=== PATIENT | male | born 1970 | race African-American/Black ===

== ENCOUNTER 2022-04-24 20:03 | Emergency (ER) | payer MEDICAID ==
[~2022-04-24] VITALS: Ht 188 cm; Wt 95.3 kg
[2022-04-24 20:06] VITALS: BP 149/98
--- NOTE | 2022-04-24 20:06 | NUR ---
JERE LESLIE TAKEN TO BED #5
--- NOTE | 2022-04-24 20:44 | NUR ---
PATIENT LEFT WITHOUT BEING SEEN BY DR. Gaviria. NO FURTHER CARE PROVIDED FOR PATIENT.
== END 2022-04-24 20:32 | disposition left against medical advice (07) ==
LOC: MED 20:03
DX: R51.9 Headache, unspecified (principal); Z53.20 Procedure and treatment not carried out because of patient's decision for unspecified reasons

== ENCOUNTER 2022-04-28 19:28 | Emergency (ER) | payer MEDICAID ==
[~2022-04-28] VITALS: Ht 188 cm; Wt 95.3 kg
[2022-04-28 19:45] VITALS: BP 134/93
--- NOTE | 2022-04-28 19:48 | NUR ---
TO LOBBY A/W BED AMBULATORY
--- NOTE | 2022-04-28 22:50 | NUR ---
CALLED FOR CT , NO RESPONSE
--- NOTE | 2022-04-28 22:50 | NUR ---
PATIENT LEFT WITHOUT BEING SEEN BY DR. EDDY. NO FURTHER CARE PROVIDED FOR PATIENT.
--- NOTE | 2022-04-28 22:55 | NUR ---
CALLED FOR SECOND TIME , NO RESPONSE
--- NOTE | 2022-04-28 23:01 | NUR ---
CALLED FOR THE THIRD TIME, NO RESPONSE
== END 2022-04-28 22:50 | disposition left against medical advice (07) ==
LOC: MED 19:28
DX: R55 Syncope and collapse (principal); R51.9 Headache, unspecified; M54.9 Dorsalgia, unspecified; Z53.21 Procedure and treatment not carried out due to patient leaving prior to being seen by health care provider